=== PATIENT | female | born 2000 | race Hispanic/Latino ===

== ENCOUNTER → 2022-04-21 | Emergency (ER) | payer OTHER ==
[~2022-04-21] MED LIST: MORPHINE 2 MG SYG ONE
== END ==
LOC: EDH 07:22
DX: R42 Dizziness and giddiness (principal); Z53.21 Procedure and treatment not carried out due to patient leaving prior to being seen by health care provider

== ENCOUNTER 2023-02-25 17:45 | Emergency (ER) | payer OTHER ==
[~2023-02-25] VITALS: Ht 157.5 cm; Wt 79.4 kg
[2023-02-25 18:01] VITALS: BP 140/88; PULSE 105; RESP 20
[2023-02-25] MEDS ORDERED: OFLO5DRO OU (20:11)
[2023-02-25] MEDS ORDERED: TETRACAINE HCL 0.5% 4 ML OPHTH SOLN OP SCH (20:30)
[2023-02-25] MEDS ORDERED: IBUPROFEN 800 MG TAB PO ONE (20:30)
[2023-02-25] MEDS ORDERED: FLUORESCEIN SODIUM 1 STRIP STRIP OP SCH (20:30)
[2023-02-25] MEDS ORDERED: [UNRECOGNIZED DRUG - CODE] OU (20:57)
== END 2023-02-25 21:17 | disposition home or self-care (01) ==
LOC: EDH 17:45
DX: H16.203 Unspecified keratoconjunctivitis, bilateral (principal); H18.829 Corneal disorder due to contact lens, unspecified eye